=== PATIENT | male | born 1965 | race Caucasian/White ===

== ENCOUNTER → 2016-02-26 | Outpatient (CLI) | payer OTHER ==
[~2016-02-26] VITALS: Ht 175.3 cm; Wt 86.2 kg
[~2016-02-26] MED LIST: ATEN-175 PO; CEFAZOLIN 2000 MG/60 ML D5W 60 ML IV SCH; DULO60CA44 PO; FAMO20TA9 PO; NORT10CA PO; NSS 1000ML IV SCH; OMEP40CA41 PO; ONDA4TAB7 PO; OXYC-164 PO; OXYC1CAP5 PO; SPRIN/30 INH; TOPI100T20 PO; TOPI50TA16 PO; TRAZ100T29 PO; ZNTT/150 PO
[2016-02-26 09:29] VITALS: Ht 175.3 cm; Wt 86.2 kg
--- NOTE | 2016-02-26 10:30 | PAT Medication Instructions ---
Service Date Feb 26, 2016. Current Home Medication List Atenolol (Tenormin), 100 MG PO QAM Duloxetine Hcl (Cymbalta), 60 MG PO QD Nortriptyline Hcl (Pamelor), 20 MG PO HS Omeprazole (Prilosec), 40 MG PO QAM Ondansetron (Zofran Odt), 4 MG PO QAM Oxycodone Hcl (Oxycodone Hcl), 1 CAP PO Q6 PRN for Pain Ranitidine (Zantac), 150 MG PO BID Tiotropium Applegate (Spiriva Handihaler), 1 CAP INH QAM Topiramate (Topamax), 100 MG PO HS Topiramate (Topamax), 50 MG PO QAM Trazodone Hcl (Trazodone), 3 TAB PO HS Medication Instructions For Your Scheduled Surgery - Take the following medications the morning of surgery with a sip of water: Topiramate (Topamax), 50 MG PO QAM Tiotropium Applegate (Spiriva Handihaler), 1 CAP INH QAM Ranitidine (Zantac), 150 MG PO BID Oxycodone Hcl (Oxycodone Hcl), 1 CAP PO Q6 PRN for Pain (can take up to four hours prior to surgery if needed) Omeprazole (Prilosec), 40 MG PO QAM Atenolol (Tenormin), 100 MG PO QAM Duloxetine Hcl (Cymbalta), 60 MG PO QD Ondansetron (Zofran Odt), 4 MG PO QAM (only if needed) - Take the following medications as scheduled the night before surgery: Trazodone Hcl (Trazodone), 3 TAB PO HS Topiramate (Topamax), 100 MG PO HS Ranitidine (Zantac), 150 MG PO BID Oxycodone Hcl (Oxycodone Hcl), 1 CAP PO Q6 PRN for Pain Nortriptyline Hcl (Pamelor), 20 MG PO HS If you have any questions please call us at [phone] or [phone] ( [place]) or [phone]
--- NOTE | 2016-02-26 11:05 | DIAGNOSTIC IMAGING REPORT ---
CHEST PREADMISSION(PA/LAT) CLINICAL HISTORY: Preoperative chest COMPARISON STUDY: No previous studies for comparison. FINDINGS: There is soft tissue prominence of the right mid mediastinum. CT scanning is recommended in follow-up to evaluate for possible adenopathy. There is no focal pulmonary consolidation. There is no failure. There are no pleural effusions. There is an old right-sided rib fracture. There are linear opacities the left lung base, likely atelectatic[ IMPRESSION: Mild soft tissue prominence of the right mediastinum. CT scanning is recommended in follow-up to evaluate for possible adenopathy Electronically signed by: Isreal Woodard M.D. 02/26/2016 11:03 AM Dictated Date/Time: 02/26/2016 11:01 AM
[2016-02-26 11:08] LABS: URINE APPEARANCE CLEAR (CLEAR); URINE BILIRUBIN NEG (NEG); URINE COLOR YELLOW; URINE NITRITE NEG (NEG); URINE PH 5.5 (4.5-7.5); UROBILINOGEN NEG (NEG)
[2016-02-26 11:11] LABS: BASO % 1.6 %; BASO ABS # 0.08 K/uL (0-0.2); COMPLETE YES; EOS % 7.1 %; HEMATOCRIT 48.3 % (42-52); IG% 0.4 %; LYMPH % 20.6 %; LYMPH ABS # 1.01 K/uL (1.2-3.4); MEAN CELL VOLUME 95.6 fL (80-100); MEAN CORPUSCULAR HEMOGLOBIN 32.3 pg (25-34); MEAN CORPUSCULAR HGB CONC 33.7 g/dl (32-36); MEAN PLATELET VOLUME 9.9 fL (7.4-10.4); MONO % 19.6 %; NEUT % 50.7 %; PLATELET COUNT 203 K/uL (130-400); RED BLOOD COUNT 5.05 M/uL (4.7-6.1)
[2016-02-26 11:18] LABS: MANUAL MICROSCOPIC REQUIRED? NO; REVIEW REQ? NO
[2016-02-26 11:24] LABS: INR 1.1 (0.9-1.1); PARTIAL THROMBOPLASTIN RATIO 1.1; PROTHROMBIN TIME (PATIENT) 11.4 SECONDS (9.0-12.0)
[2016-02-26 11:39] LABS: BUN/CREATININE RATIO 9.2 (10-20); CALCIUM 8.8 mg/dl (8.5-10.1); CREATININE 0.72 mg/dl (0.60-1.40); POTASSIUM 4.4 mmol/L (3.5-5.1)
== END | disposition home or self-care (01) ==
LOC: C.LAB 08:00 → EDSTATUS 03-04 07:15
PROVIDERS: ATTEND Orthopaedic Surgery Orthopaedic Surgery of the Spine
DX: Z01.812 Encounter for preprocedural laboratory examination (principal); Z01.810 Encounter for preprocedural cardiovascular examination